=== PATIENT | male | born 1950 | race Caucasian/White ===

== ENCOUNTER 2017-07-30 14:05 | Emergency (ER) | payer MEDICAID, MEDICARE ==
[2017-07-30 16:59] LABS: ADD MAN DIFF? NO
[2017-07-30 17:00] LABS: WHITE BLOOD COUNT 9.4 10^3/ul (4.8-10.8)
[2017-07-30 17:00] LABS: BASOPHILS % 0.3 % (0.0-2.0); EOSINOPHILS # 0.1 10^3/ul (0.0-0.5); EOSINOPHILS % 0.6 % (0.0-7.0); HEMATOCRIT 50.7 % (42.0-52.0); HEMOGLOBIN 17.3 g/dl (14.0-18.0); LYMPHOCYTES # 3.1 10^3/ul (0.8-2.9); LYMPHOCYTES % 32.8 % (15.0-51.0); MEAN CORPUSCULAR HGB CONC 34.1 g/dl (32.0-37.0); MEAN CORPUSCULAR VOLUME 90.9 fl (82.0-101.0); MEAN PLATELET VOLUME 9.7 fl (7.4-10.4); MONOCYTE # 0.7 10^3/ul (0.3-0.9); MONOCYTES % 7.6 % (0.0-11.0); NEUTROPHIL # 5.5 10^3/ul (1.6-7.5); NEUTROPHILS % 58.4 % (39.0-77.0); PLATELET COUNT 214 10^3/UL (140-415); RED BLOOD COUNT 5.58 10^6/ul (4.70-6.10); RED CELL DISTRIBUTION WIDTH 12.2 % (11.5-14.5)
[2017-07-30 17:20] LABS: INR 0.93; PROTIME 12.6 Sec (11.9-14.9)
[2017-07-30 17:32] LABS: ALANINE AMINOTRANSFERASE 34 IU/L (13-69); ALBUMIN 4.6 g/dl (3.3-4.9); ALBUMIN/GLOBULIN RATIO 1.31; ALKALINE PHOSPHATASE 70 IU/L (42-121); ANION GAP 14 (8-16); ASPARTATE AMINO TRANSFERASE 29 IU/L (15-46); BILIRUBIN,INDIRECT 0.5 mg/dl (0-1.1); BILIRUBIN,TOTAL 0.5 mg/dl (0.2-1.3); BLOOD UREA NITROGEN 10 mg/dl (7-20); CALCIUM 9.8 mg/dl (8.4-10.2); CARBON DIOXIDE 27 mmol/L (21-31); CHLORIDE 107 mmol/L (97-110); CREATININE 0.76 mg/dl (0.61-1.24); GLUCOSE 98 mg/dl (70-220); LIPASE 92 U/L (23-300); POTASSIUM 4.4 mmol/L (3.5-5.1); SODIUM 144 mmol/L (135-144); TOTAL PROTEIN 8.1 g/dl (6.1-8.1)
[2017-07-30 17:43] LABS: TROPONIN-I < 0.012 ng/ml (0.000-0.120)
[2017-07-30 17:50] LABS: ADD UMIC NO; UR ASCORBIC ACID NEGATIVE (NEGATIVE); UR BACTERIA FEW /HPF (NONE SEEN); UR BILIRUBIN (Dip) NEGATIVE (NEGATIVE); UR BLOOD (Dip) NEGATIVE (NEGATIVE); UR CLARITY SLIGHTLY CLOUDY (CLEAR); UR COLOR YELLOW (YELLOW); UR GLUCOSE (Dip) NEGATIVE (NEGATIVE); UR KETONES (Dip) NEGATIVE (NEGATIVE); UR LEUKOCYTE ESTERASE (Dip) NEGATIVE Leu/ul (NEGATIVE); UR MUCUS FEW /HPF (NONE SEEN); UR NITRITE (Dip) NEGATIVE (NEGATIVE); UR RBC 0 /HPF (0-5); UR SPECIFIC GRAVITY (Dip) 1.008 (1.003-1.030); UR TOTAL PROTEIN (Dip) NEGATIVE (NEGATIVE); UR UROBILINOGEN (Dip) NEGATIVE (NEGATIVE); UR WBC 1 /HPF (0-5)
[2017-07-30] MEDS: IOHEXOL 300MG/ML 150 ML BTL (18:26)
[2017-07-30] MEDS: SOD CHLORIDE 0.9% 100 ML (18:26)
[2017-07-30 18:59] LABS: OCCULT BLOOD STOOL NEGATIVE (NEGATIVE)
== END 2017-07-30 19:39 | disposition home or self-care (01) ==
LOC: FTE 14:05
DX: K62.89 Other specified diseases of anus and rectum (principal); I10 Essential (primary) hypertension; R10.9 Unspecified abdominal pain
CPT/HCPCS: 36415; 74177; 80053; 81001; 81003; 82270; 83690; 84484; 85025; 85610; 85730; 93005; 99285-25